=== PATIENT | female | born 1980 | race Caucasian/White ===

== ENCOUNTER 2019-02-08 13:29 | Inpatient (IN) | payer OTHER ==
[~2019-02-08] VITALS: Ht 165.1 cm; Wt 76.6 kg
[~2019-02-08 13:29] MED LIST: PREN-14 PO
[2019-02-08 13:36] VITALS: BP 114/63; PULSE 83; RESP 18
[2019-02-08 13:38] VITALS: Ht 165.1 cm; Wt 76.6 kg
--- NOTE | 2019-02-08 15:08 | TRIAGE ---
OB Triage Datetime Report Generated by CPN: 02/08/2019 15:08 Datetime: 02/08/2019 14:10 Stage of : OB Triage Maternal Assessment Level of Consciousness: Fully Conscious DTR's/Clonus: DTRs 1+ Headache: Denies Breath Sounds, Left: Clear and Equal Breath Sounds, Right: Clear and Equal Nausea/Vomiting: Denies RUQ Epigastric Pain: Denies Labor Evaluation Frequency: 7 Monitor Mode: External Duration (sec)2399: 70 Quality: Mild Pattern: Normal: <= 5 Contractions in 10 Minutes Resting Tone [place]: Relaxed Heart Rate FHR Baseline Rate: 135 Monitor Mode: External US Variability: Moderate 6-25 bpm Accelerations: 15X15 Decelerations: None Category: Category I Pain Assessment Pain Scale: 0 Pain Presence: None/Denies Pain Type: N/A Pain Goal: 3 Vaginal Exam Membrane Status: Intact Datetime: 02/08/2019 14:00 Maternal Assessment Level of Consciousness: Fully Conscious DTR's/Clonus: DTRs 1+ Headache: Denies Blurred Vision: No Respiratory Effort: Unlabored Breath Sounds, Left: Clear and Equal Breath Sounds, Right: Clear and Equal Nausea/Vomiting: Denies RUQ Epigastric Pain: Denies Facial Edema: None Labor Evaluation Frequency: X1 Duration (sec)2399: 70 Quality: Mild Pattern: Normal: <= 5 Contractions in 10 Minutes Resting Tone [place]: Relaxed Heart Rate FHR Baseline Rate: 135 Monitor Mode: External US Variability: Moderate 6-25 bpm Accelerations: 15X15 Decelerations: None Category: Category I Pain Assessment Pain Scale: 0 Pain Presence: None/Denies Pain Type: N/A Pain Goal: 3 Vaginal Exam Membrane Status: Intact Datetime: 02/08/2019 13:34 Stage of : OB Triage Maternal Assessment Level of Consciousness: Fully Conscious DTR's/Clonus: DTRs 2+; No Clonus Headache: Denies Blurred Vision: No Respiratory Effort: Unlabored; Regular Rhythm; Equal Expansion Breath Sounds, Left: Clear and Equal Breath Sounds, Right: Clear and Equal Nausea/Vomiting: Denies RUQ Epigastric Pain: Denies Lower Extremities Edema: None Degree: None Upper Extremities Edema: None Degree: None Facial Edema: None Temperature Route: Oral Fall Risk Assessment History of Falling: (0) No Secondary Diagnosis: (0) No Ambulatory Aid: (0) Bedrest/Nurse Assist IV Therapy: (0) No Gait: (0) Normal/Bedrest/Immobile Mental Status: (0) Oriented to Own Ability Fall Score: 0 Fall Risk Score Definition: No Risk: No action required Monitor Mode: External Heart Rate FHR Baseline Rate: 130 Monitor Mode: External US Pain Assessment Pain Scale: 0 Datetime: 02/08/2019 13:32 Time of Arrival: 02/08/2019 13:20 EGA: 34.4 Arrived By: Ambulatory Arrived From: Office Chief Complaint: NST/BPP Movement: Present Rupture of Membranes: Denies Vaginal Discharge: Denies Recent Sexual Intercouse: Denies Abdominal Trauma: Not Applicable Patient Complaints: Other Additional Patient Complaints: follow-up for low MICHELLE Time Provider Notified: 02/08/2019 13:20 Provider Notified: DANIEL Initial Plan: efm/ u/s
[2019-02-08] MEDS: LACTATED RINGER'S 1,000 ML IV SCH ×2 (16:09→16:34)
[2019-02-08] MEDS: BETAMET NA PHOS/AC(6 MG/ML) 2 ML INJ SYG IM SCH (16:53)
--- NOTE | 2019-02-08 18:23 | HP ---
Date/Time of Note Date/Time of Note DATE: 02/08/19 TIME: 18:20 OB - History Hx of Present Free Text/Dictation 38-year-old 5 para 4 at 34 weeks and 4 days of gestation with estimated date of delivery March 18, 2019 Patient presents for NST and BPP for history of low MICHELLE She reports positive movement, denies any vaginal bleeding or leaking fluid, denies any uterine contractions Patient is a gestational diabetic diet controlled Past obstetrical history significant for x4 Estimated Due Date: Mar 18, 2019 : 5 Para: 4 Care: Good Care Obstetrical Complications: Gestational Diabetes (GDM A1), Other (Low MICHELLE) Past Family/Social History * Past Medical, Surgical, Family and Obstetric Histories reviewed from chart. OB Admission Exam Vital Signs Vital Signs Vital Signs Date Temp Pulse Resp B/P (MAP) Pulse Ox O2 O2 Flow FiO2 Time Delivery Rate 02/08/19 98.4 83 18 114/63 Room Air 13:36 (80) Physical Exam HEENT: WNL Heart: Rhythm Normal Lungs: Clear, Equal Abdomen: WNL Extremities: Normal Reflexes: Normal Membranes: Intact Heart Rate: 140's Accelerations: Accelerations Present Decelerations: No Decelerations Varibility: Moderate Contractions on Admission: None Last 72 hourBlood Glucose Bedside Glucose - 72 Hours Test 02/08/19 16:04 Bedside Glucose 83 mg/dL (70-220) Last 72 hours Lab Results CBC & BMP Rupture of membranes negative 02/08/19 15:35 PROCEDURE: OB ultrasound for biophysical profile CLINICAL INDICATION: Contractions. TECHNIQUE: Multiple sonographic images of the pelvis were obtained. Transabdominal view of the gravid uterus are available for review. The images were reviewed on a PACS workstation. COMPARISON: None FINDINGS: breathing movement = 2/2 tone = 2/2 motion = 2/2 Quantitative amniotic fluid volume = 0/2 MICHELLE = 4.4 cm Single live intrauterine with cardiac activity at 158 beats per minute. There is a left-sided placenta without previa or abruption. IMPRESSION: 1. Single living intrauterine gestation in cephalic position. 2. Biophysical profile = 6/8. 3. MICHELLE = 4.4 cm. RPTAT: AACC Physician Benjamin Date Time Electronically viewed and signed by Physician Benjamin on 02/08/2019 14:50 JH/ CC: MATIAS SANCHEZ [id number] PROCEDURE: US OB. CLINICAL INDICATION: Size and dates TECHNIQUE: Multiple sonographic images of the pelvis and gravid uterus were obtained. The images were reviewed on a PACS workstation. COMPARISON: No prior studies are available for comparison. FINDINGS: Gestation: Single live intrauterine gestation. Cardiac activity: 152 beats per minute. Presentation: Vertex. Placenta: Location: maternal left Appearance: No previa or abruption. Measurements: BPD = 7.7 cm, 30 weeks and 6 days HC = 28.5 cm, 31 weeks and 2 days AC = 31.2 cm, 35 weeks and 1 day FL = 6.6 cm, 33 weeks and 6 days Gestational Age: AUA estimated gestational age: 32 weeks 6 days LMP estimated gestational age: 34 weeks 4 days AUA estimated date of delivery: 03/30/19 The EFW = 2308 g, 27%ile based on LMP age. RPTAT: AA IMPRESSION: Single live intrauterine gestation of 32 weeks 6 days by ultrasound criteria. .Brenden Rodriguez MD, MD Date Time Electronically viewed and signed by .Brenden Rodriguez MD, on 02/08/2019 15:08 .S/ CC: MATIAS SANCHEZ [phone] OB Assessment/Plan Reason for admission: other (Oligohydramnios) Other plan: 5 para 4 at 34 weeks and 4 days of gestation with oligohydramnios and GDM A1 Admit to antepartum IV fluids; repeat BPP tomorrow Betamethasone for lung maturity Perinatology consultation Copies To: CC: MATIAS SANCHEZ ; ARIC SANCHEZ MD February 08, 2019 18:23
[2019-02-08] MEDS: ACCU-CHEK XX SCH (19:35)
[2019-02-09] MEDS: LACTATED RINGER'S 1,000 ML IV SCH ×3 (00:33→23:04)
[2019-02-09] MEDS: ACCU-CHEK XX SCH ×4 (07:49→20:45)
[2019-02-09] MEDS: PRENATAL VITAMIN PO SCH (09:00)
[2019-02-09] MEDS: FERROUS SULFATE (EC) 325 MG TAB PO SCH (09:00)
[2019-02-09] MEDS: DOCUSATE SODIUM 100 MG CAP PO SCH (09:00)
--- NOTE | 2019-02-09 14:06 | PN ---
Date/Time of Note Date/Time of Note DATE: 02/09/19 TIME: 13:50 OB Subjective Subjective Subjective Date of admission: 02/08/2019 Hospital day #2 patient seen and examined. She states good movement. She denies nausea, vomiting, shortness of breath, chest pain, abdominal pain, uterine contractio ns, headache, visual changes, vaginal bleeding or LOF. OB Objective Objective Objective General: Patient appears well, alert and oriented, NAD, appropriate mood and affect ABD: gravid, soft, non-tender. Back: No CVA tenderness (B/L) LE: Mild edema. No clubbing, cyanosis, edema, thigh or calf tenderness bilaterally FHT: 135 bpm , moderate variability with acceleration, no deceleration-category I Contractions: None Speculum exam performed yesterday, no leakage or gush of fluid seen. Nitrazine test was negative OB Assessment/Plan Other plan: 38 Year-old G 5 para 4-0-0-4 with SIUP at at 34 weeks and 5 days with a RENETTA of 03/23/2019 with oligohydramnios -FHR: Reassuring. No sign of metabolic acidosis- Category I -Contractions: None -Continuous EFM, toco - vitamin and ferrous sulfate 325 mg daily -Weekly weight -Tdap vaccine -Betamethasone 12 mg IM daily x2. will give second dose at 1700 today -MICHELLE on admission was 4.5, biophysical profile 03/12. Repeat ultrasound today with MICHELLE of 4.7 cm -Continue in-house management -Perinatology and neonatology consult 2. A1 gestational diabetes: She had normal FBS and 2 hours postprandial previously. She has received betamethasone mild increase on fasting blood sugar this morning is due to betamethasone. Observe her closely if FBS or 2 hours postprandial is elevated, consider insulin sliding scale MATIAS SANCHEZ February 09, 2019 14:03
[2019-02-09] MEDS ORDERED: DIPHTH/TET/ACEL PERTUSS (ADULT) 0.5 ML VIAL IM* ONE (14:30)
[2019-02-09] MEDS: BETAMET NA PHOS/AC(6 MG/ML) 2 ML INJ SYG IM SCH (16:48)
[2019-02-10] MEDS: LACTATED RINGER'S 1,000 ML IV SCH ×2 (06:44→14:29)
[2019-02-10] MEDS: ACCU-CHEK XX SCH ×4 (07:55→21:02)
[2019-02-10] MEDS: PRENATAL VITAMIN PO SCH (09:15)
[2019-02-10] MEDS: DOCUSATE SODIUM 100 MG CAP PO SCH (09:15)
[2019-02-10] MEDS: FERROUS SULFATE (EC) 325 MG TAB PO SCH (09:15)
--- NOTE | 2019-02-10 17:40 | PN ---
Date/Time of Note Date/Time of Note DATE: 02/10/19 TIME: 17:37 OB Subjective Subjective Subjective Patient denies any vaginal bleeding or decreased movement. Reports occa sional on and off leaking of small amounts of fluid. Had a ROM plus test yesterday that was negative. Reports is still leaking small amount. OB Objective Objective Objective Appearance: Alert and oriented x4 does not appear to be in any acute distress Abdomen: Soft, gravid, fundal height consider gestational age NST: Category 2, episodes of wandering baseline and occasionally lower baseline and 110 with some occasional variables with interval decreased variability noted,, Occasional contraction noted on the monitor Blood sugars in the goal range mostly Extremities: No calf tenderness, no click no edema no cord palpable Laboratory Tests Test 02/09/19 20:09 02/10/19 07:47 02/10/19 10:26 02/10/19 11:10 Bedside Glucose 146 107 140 Membranes Rupture NEGATIVE Test 02/10/19 16:18 Bedside Glucose 102 VS - Last 72 Hours, by Label Date Temp Pulse Resp B/P (MAP) Pulse Ox O2 O2 Flow FiO2 Time Delivery Rate 02/08/19 98.4 83 18 114/63 Room Air 13:36 (80) OB Assessment/Plan Other Assessment: IUP at 34 weeks and 6 days Admitted for oligohydramnios, improved, last ultrasound yesterday, MICHELLE 6.2 GDM, A1, well-controlled Status post full course of steroid. Completed February 08, 2019 Reports leaking small amount of fluid. Proceed with ROM test again Follow-up with the results. Perinatology consultation Inpatient management Follow-up with ROM test Repeat MICHELLE tomorrow LOUIE PADILLA MD February 10, 2019 17:40
[2019-02-11] MEDS: LACTATED RINGER'S 1,000 ML IV SCH ×3 (00:28→18:59)
[2019-02-11] MEDS: ACCU-CHEK XX SCH ×2 (08:30→14:05)
[2019-02-11] MEDS: FERROUS SULFATE (EC) 325 MG TAB PO SCH (08:50)
[2019-02-11] MEDS: DOCUSATE SODIUM 100 MG CAP PO SCH (08:50)
[2019-02-11] MEDS: PRENATAL VITAMIN PO SCH (08:50)
--- NOTE | 2019-02-11 11:49 | CONS ---
DATE OF ADMISSION: 02/08/2019 DATE OF CONSULTATION: 02/11/2019 HISTORY OF PRESENT ILLNESS: The patient is a 38-year-old G5, P4, was admitted secondary to oligohydr amnios on the 7th it was 4.4, 8th 4.7, 9th 6.2 , 10th 6.3. She received betamethasone. RECOMMENDATIONS: If the patient at any point has the MICHELLE of 7, she can be discharged home with the N ST twice weekly. Until then, in-house management. Dictated By: LINH KIM/NTS Conf#: [id number] DID#: [id number] CC: MATIAS SANCHEZ MD;*EndCC*
[2019-02-11] MEDS ORDERED: ACETAMINOPHEN 500 MG TAB PO STA (15:50)
[2019-02-11] MEDS ORDERED: AMPICILLIN 2 GM/NS (PMX) 100 ML ONE (16:59)
[2019-02-11] MEDS ORDERED: AMPICILLIN 2 GM/NS (PMX) 100 ML IVPB ONE (17:00)
[2019-02-11] MEDS ORDERED: OXYTOCIN 30 UNITS/LR 500 ML IV SCH ×2 (17:30)
[2019-02-11] MEDS ORDERED: OXYTOCIN 30 UNITS/LR 500 ML IV PRN (17:30)
[2019-02-11] MEDS ORDERED: METHYLERGONOVINE 0.2 MG INJ IM PRN (17:30)
[2019-02-11] MEDS ORDERED: LIDOCAINE 1% (MPF) 30 ML INJ INJ PRN (17:30)
[2019-02-11] MEDS ORDERED: MISOPROSTOL 200 MCG TAB PR PRN (17:30)
[2019-02-11] MEDS ORDERED: BUTORPHANOL 2 MG INJ IV PRN ×2 (17:30)
[2019-02-11] MEDS ORDERED: CARBOPROST 250 MCG INJ IM PRN (17:30)
[2019-02-11] MEDS ORDERED: GENTAMICIN 120 MG/NS (PMX) 100 ML IVPB SCH (18:00)
--- NOTE | 2019-02-11 18:31 | QN ---
Documentation Comment called baseline to 180"s IV bolus with O2 no improvement poss leakage fluid sent down to L&D Tafti was notified by RN gave green light to induce without even doing ROM plus CBC ordered for chorioamnionitis TOM MAIN MD February 11, 2019 18:31
--- NOTE | 2019-02-11 20:12 | PN ---
Date/Time of Note Date/Time of Note DATE: 02/11/19 TIME: 20:04 OB Subjective Subjective Subjective call by the RN to evaluate the patient noticed fever >101.0 patient c/o lower abdominal pain tachicardia OB Objective Objective Objective heart tachicardia abdomen soft, prominent uterine tenderness SVE close/thick OB Assessment/Plan Reason for admission: other (IUP 35 weeks, r/o PPROM, EFW 2300 gr vertex, fever, uetione tenderness and abdominal pain, chorioanbionitis) Induction Method: other (plan discussed by Dr. Ruffin today with perinathologist, recommendned pursue with delivery. I explaine the patient risk of uterine infection with continue expected management, also explaine the patient risk of delivery at 35 weeks. Explaine the patient that current risk of infection overwhelming risk of prematurity. Patient agree with the ploan of delivery. Will start induction of labor with cytotec. NICU notified.) HONORIO CURRIE MD February 11, 2019 20:12
[2019-02-11] MEDS ORDERED: MISOPROSTOL 50 MCG CAPSULE VAG SCH (21:00)
[2019-02-11] MEDS: AMPICILLIN 1 GM/NS (PMX) 50 ML IVPB SCH (21:22)
[2019-02-12] MEDS ORDERED: MISOPROSTOL 50 MCG CAPSULE VAG SCH
[2019-02-12] MEDS: AMPICILLIN 1 GM/NS (PMX) 50 ML IVPB SCH ×2 (01:10→05:17)
[2019-02-12] MEDS: LACTATED RINGER'S 1,000 ML IV SCH ×2 (01:10→09:30)
[2019-02-12] MEDS ORDERED: GENTAMICIN 80 MG/NS (PMX) 50 ML IVPB SCH (02:00)
[2019-02-12] MEDS ORDERED: MISOPROSTOL 50 MCG CAPSULE PO PRN (04:05)
--- NOTE | 2019-02-12 04:58 | CONS ---
DATE OF ADMISSION: 02/08/2019 DATE OF CONSULTATION: 02/11/2019 I was notified by Ny, the nurse taking care of that patient around 4:30 on February 10. She notified me that after the patient returned from restroom and was placed back on the monitor, heart ton e was shown to be in the 170s and 180s and had a temperature spike to 102.5. Given the history of ol igohydramnios, for which she was presented and absence of any other reasons for temperature, presumed diagnosis of chorioamnionitis was stated, and I recommended delivery and also to place the patient o n ampicillin and gentamicin. Dr. Ruffin who was the laborist at the moment, she was in the labor room o r the operating room, but Ny was to notify Dr. Ruffin. I spoke to the laborist at night time around 8:30 and I reviewed the strip. Strip had some accelerations, but in between accelerations, minimal variabilities. However, at that time, patient had a temperature of 98. heart tone was not tac hycardic. I spoke to the laborist and I notified him the fact that variability between contractions are minimal, would point to me towards possible necessity of the faster delivery if the patient does not progress quickly. Dictated By: LINH KIM/VANESSA Conf#: [id number] DID#: [id number]
--- NOTE | 2019-02-12 07:55 | LDN ---
Date/Time of Note Date/Time of Note DATE: 02/12/19 TIME: 07:53 Delivery Summary Weeks of Gestation 35 weeks of gestation Placenta Delivered: Spontaneously Meconium: none Episiotomy: No Anesthesia type: None Estimated blood loss: 100 Sponge & Needle done & correct: Yes All needle counts correct: Yes Any foreign bodies felt in the: No Infant Delivery Information Sex Sex: female Apgars 1 Minute: 8 5 Minute: 9 Suctioning Nose & mouth suctioned at vikas: Yes Delee suction performed: No Umbilical Cord Umbilical cord with: 3 Vessels Cord presentations: no nuchal cord Cord Blood was obtained: Yes Mother & Baby Disposition Disposition Baby's weight 2380 g/ 5 pounds 4 ounces Mom & Baby to Maternity; Good: Yes Baby to NICU: No Copies To: CC: MATIAS SANCHEZ BAHAREH MD February 12, 2019 07:55
[2019-02-12] MEDS ORDERED: OXYTOCIN 30 UNITS/LR 500 ML IV SCH (07:56)
[2019-02-12] MEDS ORDERED: WITCH HAZEL/GLYCERIN PAD PR PRN (08:00)
[2019-02-12] MEDS ORDERED: CARBOPROST 250 MCG INJ IM PRN (08:00)
[2019-02-12] MEDS ORDERED: LANOLIN HPA 1 PKT TOP PRN (08:00)
[2019-02-12] MEDS ORDERED: OXYTOCIN 30 UNITS/LR 500 ML IV PRN (08:00)
[2019-02-12] MEDS ORDERED: METHYLERGONOVINE 0.2 MG INJ IM PRN (08:00)
[2019-02-12] MEDS ORDERED: ONDANSETRON 4 MG INJ IV PRN (08:00)
[2019-02-12] MEDS ORDERED: MAGNESIUM HYDROXIDE 30ML CUP PO PRN (08:00)
[2019-02-12] MEDS ORDERED: ACETAMINOPHEN 325 MG TAB PO PRN ×2 (08:00)
[2019-02-12] MEDS ORDERED: MISOPROSTOL 200 MCG TAB PR PRN (08:00)
[2019-02-12] MEDS ORDERED: BENZOCAINE 20% 56 ML SPRAY TOP PRN (08:00)
[2019-02-12] MEDS ORDERED: DIBUCAINE 1% 30 GM OINT TOP PRN (08:00)
[2019-02-12] MEDS: IBUPROFEN 600 MG TAB PO PRN ×3 (08:31→23:06)
[2019-02-12 09:50] VITALS: BP 113/56; PULSE 60; RESP 18
[2019-02-12] MEDS: LACTATED RINGER'S 1,000 ML IV* SCH ×2 (10:23→15:56)
[2019-02-12] MEDS: PRENATAL VITAMIN PO SCH (10:24)
[2019-02-12 10:50] VITALS: BP 117/59; PULSE 56; RESP 18
[2019-02-12] MEDS: ACCU-CHEK XX SCH ×4 (11:50→20:05)
[2019-02-12] MEDS: PIPER-TAZO 3.375 GM IV (PMX) 100 ML IVPB SCH ×2 (11:55→18:01)
[2019-02-12 15:47] VITALS: BP 102/70; PULSE 62; RESP 18
[2019-02-12 16:00] VITALS: BP 102/70; PULSE 62; RESP 19
[2019-02-12 19:35] VITALS: BP 112/56; PULSE 64; RESP 18
[2019-02-12] MEDS: SENNA/DOCUSATE NA (8.6MG/50MG) TAB PO PRN (21:01)
[2019-02-13] VITALS: BP 111/62; PULSE 59; RESP 18
[2019-02-13] MEDS: PIPER-TAZO 3.375 GM IV (PMX) 100 ML IVPB SCH ×2 (00:05→05:39)
[2019-02-13] MEDS: LACTATED RINGER'S 1,000 ML IV* SCH (00:06)
[2019-02-13 04:15] VITALS: BP 103/71; PULSE 58; RESP 18
[2019-02-13] MEDS: IBUPROFEN 600 MG TAB PO PRN ×3 (05:38→18:26)
[2019-02-13 07:45] VITALS: BP 104/59; PULSE 52; RESP 16
[2019-02-13] MEDS: ACCU-CHEK XX SCH ×4 (07:46→20:05)
[2019-02-13] MEDS: PRENATAL VITAMIN PO SCH (09:20)
[2019-02-13] MEDS ORDERED: DIPHTH/TET/ACEL PERTUSS (ADULT) 0.5 ML VIAL IM* ONE (10:00)
--- NOTE | 2019-02-13 10:45 | PN ---
Date/Time of Note Date/Time of Note DATE: 02/13/19 TIME: 10:43 OB Subjective Subjective Subjective PPD# 1 Patient is doing well. She denies nausea, vomiting, shortness of breath, chest pain, headache. She has been ambulating without difficulty, tolerating regular diet. Pain is well controlled on current medications OB Objective Objective Objective VS - Last 72 Hours, by Label Date Temp Pulse Resp B/P (MAP) Pulse Ox O2 O2 Flow FiO2 Time Delivery Rate 02/13/19 98.4 52 16 104/59 Room Air 07:45 (74) 02/13/19 98.3 58 18 103/71 Room Air 04:15 (82) 02/13/19 98.4 59 18 111/62 Room Air 00:00 (78) 02/12/19 98.2 64 18 112/56 Room Air 19:35 (74) 02/12/19 98.2 62 19 102/70 Room Air 16:00 (81) 02/12/19 98.2 62 18 102/70 15:47 (81) 02/12/19 99.1 56 18 117/59 Room Air 10:50 (78) 02/12/19 99.0 60 18 113/56 Room Air 09:50 (75) 02/11/19 101.3 17:20 General: AAO X 3, comfortable, NAD, appropriate mood and affect. ABD: +BS. Soft, non-tender. Uterus 2 cm below umbilicus Flank: No CVA tenderness (B/L) LE: Mild edema. No clubbing, cyanosis, thigh or calf tenderness (B/L). Homans 'sign is negative OB Assessment/Plan Other plan: 38 years old 5 para 5-0-0-5 s/p normal vaginal delivery at 34 weeks and 6 days. PPD#1 - AF, VSS - Baby is doing well, at bed side. She is bonding well - Contraception methods with R/B/A/FR discussed - Continue care - Discharge home tomorrow - Rx and instruction given - Follow up in 2 and 6 weeks at clinic MATIAS SANCHEZ February 13, 2019 10:45
[2019-02-13 16:00] VITALS: BP 100/57; PULSE 60; RESP 16
[2019-02-13 20:00] VITALS: BP 101/51; PULSE 63; RESP 20
[2019-02-13] MEDS: SENNA/DOCUSATE NA (8.6MG/50MG) TAB PO PRN (21:04)
[2019-02-14 04:00] VITALS: BP 100/53; PULSE 70
[2019-02-14 08:00] VITALS: BP 99/56; PULSE 60; RESP 18
[2019-02-14] MEDS: IBUPROFEN 600 MG TAB PO PRN (08:00)
[2019-02-14] MEDS: ACCU-CHEK XX SCH ×2 (08:27→10:05)
[2019-02-14] MEDS: PRENATAL VITAMIN PO SCH (09:36)
--- NOTE | 2019-02-14 16:03 | DS ---
Date/Time of Note Date/Time of Note DATE: 02/14/19 TIME: 16:01 Obstetrical Discharge Record Final Diagnosis Final Diagnosis: delivered Other Final Diagnosis day #2 Status post Patient stable and afebrile Vital signs stable Hematology - 72 Hrs Test 02/11/19 17:19 02/13/19 07:53 Hematocrit 33.5 % (37.0-47.0) L 33.3 % (37.0-47.0) L Hemoglobin 11.4 g/dl (12.0-16.0) L 11.4 g/dl (12.0-16.0) L Mean Corpuscular 29.1 pg (29.0-33.0) 28.6 pg (29.0-33.0) L Hemoglobin Mean Corpuscular 34.0 g/dl (32.0-37.0) 34.2 g/dl (32.0-37.0) Hemoglobin Concent Mean Corpuscular Volume 85.5 fl (82.0-101.0) 83.7 fl (82.0-101.0) Mean Platelet Volume 11.7 fl (7.4-10.4) H 11.6 fl (7.4-10.4) H Platelet Count 200 10^3/UL (140-415) # 212 10^3/UL (140-415) Red Blood Count 3.92 10^6/ul (4.20-5.40) 3.98 10^6/ul (4.20-5.40) L L Red Cell Distribution 13.7 % (11.5-14.5) 13.7 % (11.5-14.5) Width White Blood Count 9.3 10^3/ul (4.8-10.8) 11.8 10^3/ul (4.8-10.8) #H Chemistry Test 02/11/19 23:17 02/12/19 03:04 02/12/19 06:51 02/12/19 11:50 Bedside 106 136 97 94 Glucose mg/dL (70-220) mg/dL (70-220) mg/dL (70-220) mg/dL (70-220) Test 02/12/19 14:05 02/12/19 20:13 02/13/19 07:46 02/13/19 11:09 Bedside 144 144 97 112 Glucose mg/dL (70-220) mg/dL (70-220) mg/dL (70-220) mg/dL (70-220) Test 02/13/19 14:33 02/13/19 20:54 02/14/19 08:23 02/14/19 11:21 Bedside 104 102 89 103 Glucose mg/dL (70-220) mg/dL (70-220) mg/dL (70-220) mg/dL (70-220) Abdomen soft, fundus firm Perineum intact Extremities nontender Assessment and plan Patient stable and doing well Plan to discharge home Patient instructed to follow-up with her own TRANSPORTATION ENGINEERING TECHNICIAN in 2 and 6 weeks Vaginal Delivery Obstetrical Delivery: Spontaneous Condition on Discharge Physical Assessment Last Vitals: VS - Last 72 Hours, by Label Date Temp Pulse Resp B/P (MAP) Pulse Ox O2 O2 Flow FiO2 Time Delivery Rate 02/14/19 98.0 60 18 99/56 (70) Room Air 08:00 02/14/19 98.4 70 100/53 Room Air 04:00 (69) 02/13/19 98.3 63 20 101/51 Room Air 20:00 (68) 02/13/19 98.0 60 16 100/57 Room Air 16:00 (71) 02/13/19 98.4 52 16 104/59 Room Air 07:45 (74) 02/13/19 98.3 58 18 103/71 Room Air 04:15 (82) 02/13/19 98.4 59 18 111/62 Room Air 00:00 (78) 02/12/19 98.2 64 18 112/56 Room Air 19:35 (74) 02/12/19 98.2 62 19 102/70 Room Air 16:00 (81) 02/12/19 98.2 62 18 102/70 15:47 (81) 02/12/19 99.1 56 18 117/59 Room Air 10:50 (78) 02/12/19 99.0 60 18 113/56 Room Air 09:50 (75) 02/11/19 101.3 17:20 Voiding: Yes Bowel Movement: Yes Breast: Soft, non-tender Fundus: Firm Calf Tenderness: No Patient Condition: Good Copies To: CC: MATIAS SANCHEZ BAHAREH MD February 14, 2019 16:03
--- NOTE | 2019-02-15 15:37 | DELSUM ---
Delivery Summary A-C Datetime Report Generated by CPN: 02/15/2019 15:37 DELIVERY PERSONNEL Ammonium Hydroxide Operator: Kumar, Wenbing MATERNAL INFORMATION Delivery Anesthesia: None Medications in Delivery: pitocin Delivery QBL (ml): 100 Placenta Cultured: Yes Maternal Complications: Maternal Fever Other Maternal Complications: a1dm LABOR SUMMARY EDC: 03/18/2019 00:00 No. Babies in Womb: 1 Attempted: No Labor Anesthesia: None LABOR INFORMATION Reason for Induction: Other Reason for Induction- Other: maternal fever Complete Dilatation: 02/12/2019 07:26 Cervical Ripening Agents: Cytotec @ Oxytocin: N/A Group B Beta Strep: Not Done Antibiotics # of Doses: 6 Antibiotics Time of Last Dose: 02/12/2019 05:00 MEMBRANES Membranes Rupture Method: Artificial Rupture of Membranes: 02/12/2019 07:35 Length of Rupture (hr): 0.00 Amniotic Fluid Color: Clear Amniotic Fluid Amount: Small Amniotic Fluid Odor: Normal STAGES OF LABOR Stage 2 hr: 0 Stage 2 min: 9 Stage 3 hr: 0 Stage 3 min: 5 VAGINAL DELIVERY Laceration Extension: N/A Laceration Type: None Laceration Repair: No Initial Vag Sponge Count: 10 Final Vag Sponge Count: 10 Initial Vag Sharps Count: 1 Final Vag Sharps Count: 1 Sponge Count Correct: Yes; Vaginal Sweep Performed Sharps Count Correct: Yes BABY A INFORMATION Delivery Date/Time: 02/12/2019 07:35 Method of Delivery: Vaginal Born in Route : No : N/A Forceps: N/A Vacuum Extraction: N/A Shoulder Dystocia : No SHOULDER DYSTOCIA BABY A Infant Delivery Date/Time: 02/12/2019 07:35 PRESENTATION/POSITION BABY A Presentation: Cephalic Cephalic Presentation: Vertex Vertex Position: Left Occipital Anterior Breech Presentation: N/A PLACENTA INFORMATION BABY A Placenta Delivery Time : 02/12/2019 07:40 Placenta Method of Delivery: Spontaneous Placenta Status: Delivered SCORES BABY A Heart Rate 1 min: >100 bpm Resp Effort 1 min: Good Cry Reflex Irritability 1 min: Cough/Sneeze/Pulls Away Muscle Tone 1 min: Active Motion Color 1 min: Blue/Pale Resuscitation Effort 1 min: Tactile Stimulation SCORE 1 MIN: 8 Heart Rate 5 min: >100 bpm Resp Effort 5 min: Good Cry Reflex Irritability 5 min: Cough/Sneeze/Pulls Away Muscle Tone 5 min: Active Motion Color 5 min: Body [place], Extremit Blue SCORE 5 MIN: 9 INFANT INFORMATION BABY A Gestational Age at Delivery: 35.1 Gestational Status: Late - 34- 36.6 Weeks Outcome : Liveborn Infant Condition : Stable Sex: Female IDENTIFICATION/MEDS BABY A ID Band Number: [id number] ID Band Location: Right Leg; Left Arm Sensor Applied: Yes Sensor Number: [id number] Sensor Location : Cord Clamp WEIGHT/LENGTH BABY A Birthweight (gm): 2380 Infant Weight (lb): 5 Weight (oz): 4 Length (in): 18.50 Length (cm): 46.99 CORD INFORMATION BABY A No. Cord Vessels: 3 Nuchal Cord : N/A Cord Blood Taken: Yes Suction: Mouth; Nose ASSESSMENT BABY A Complications: Decreased Variability Physical Findings at Delivery: Within Normal Limits Respirations: Appears Normal Drum Barker Operator/ALS Called : No Care By: rt/oniel Transferred To: Remains with Mother
== END 2019-02-14 15:00 | disposition home or self-care (01) | DRG 833 ==
LOC: OBT 13:29 → L-D 13:30 → OBT 15:00 → L-D 15:00 → PP1 21:40 → L-D 02-11 16:51 → PP1 02-12 09:26
PROVIDERS: ADMIT Obstetrics & Gynecology; ATTEND Obstetrics & Gynecology
DX: O41.03X0 Oligohydramnios, third trimester, not applicable or unspecified (principal); O24.419 Gestational diabetes mellitus in pregnancy, unspecified control; Z3A.34 34 weeks gestation of pregnancy
CPT/HCPCS: 76815; 76816; 76818; 81003; 82962; 84112; 85025; 85610; 85730; 86592; 86850; 86900; 86901; 87340; 88307; 90715; 99464; G0463; J0290; J0702; J1580; J2543; J2590; J7120